=== PATIENT | female | born 1955 | race Caucasian/White ===

== ENCOUNTER → 2019-07-21 | Outpatient (CLI) | payer MEDICARE ==
[~2019-07-21] MED LIST: ACET-2065 PO; ALBU8.5H8 IH; ATOR20TA37 PO; BUPR150T73 PO; CARI350T14 PO; CYCL-259 PO; FLUO40CA9 PO; GABA600T7 PO; HYDR-36 PO; HYDR25CA94 PO; HYDROCHLOROTH12.5 MG PO; MOME13HF IH; MORP-29 PO; OXYC-432 PO; SUMA25TA3 PO; SUMA50TA4 PO; TIOT18CA INH; TRAZ150T62 PO; flexeril PO
== END | disposition home or self-care (01) ==
LOC: CFH 08:24
PROVIDERS: ATTEND Physician Assistant Medical
DX: J43.9 Emphysema, unspecified (principal); J98.4 Other disorders of lung; R91.8 Other nonspecific abnormal finding of lung field; R19.01 Right upper quadrant abdominal swelling, mass and lump; I70.0 Atherosclerosis of aorta; N28.89 Other specified disorders of kidney and ureter; M51.36 Other intervertebral disc degeneration, lumbar region; Z96.643 Presence of artificial hip joint, bilateral
CPT/HCPCS: 71250; 74176

== ENCOUNTER → 2019-08-01 | Outpatient (CLI) | payer MEDICARE | END | disposition home or self-care (01) | LOC: PETCFH 07:41 | PROVIDERS: ATTEND Physician Assistant Medical | DX: R91.8 Other nonspecific abnormal finding of lung field (principal); Z85.3 Personal history of malignant neoplasm of breast; Z85.118 Personal history of other malignant neoplasm of bronchus and lung | CPT/HCPCS: 78815; A9552 ==